=== PATIENT | female | born 1990 | race Caucasian/White ===

== ENCOUNTER 2018-01-14 09:32 | Emergency (ER) | payer MEDICAID, SELFPAY ==
[~2018-01-14] VITALS: Ht 162.6 cm; Wt 83.0 kg
[~2018-01-14 09:32] MED LIST: CLIN-80 PO
[2018-01-14 09:39] VITALS: BP 129/67
[2018-01-14] MEDS ORDERED: DOXY100C43 PO (10:09)
== END 2018-01-14 11:08 | disposition home or self-care (01) ==
LOC: ER 09:32
DX: L03.012 Cellulitis of left finger (principal)
CPT/HCPCS: 99283

== ENCOUNTER 2021-01-16 03:43 | Emergency (ER) | payer MEDICAID, OTHER ==
[~2021-01-16] VITALS: Ht 165.1 cm; Wt 84.1 kg
[~2021-01-16 03:43] MED LIST changes: -CLIN-80 PO; +CLIN-97 PO
[2021-01-16 03:57] VITALS: BP 119/73
[2021-01-16] MEDS ORDERED: ketorolac trometh inj. 60 MG/2 ML VIAL IM ONE (04:05)
== END 2021-01-16 04:45 | disposition home or self-care (01) ==
LOC: ER 03:44
DX: R10.31 Right lower quadrant pain (principal); Z86.14 Personal history of Methicillin resistant Staphylococcus aureus infection; Z90.89 Acquired absence of other organs; Z88.8 Allergy status to other drugs, medicaments and biological substances; Z79.2 Long term (current) use of antibiotics; V87.7XXA Person injured in collision between other specified motor vehicles (traffic), initial encounter; Y93.89 Activity, other specified; Y92.89 Other specified places as the place of occurrence of the external cause; Y99.8 Other external cause status
CPT/HCPCS: 99281; 99282

== ENCOUNTER 2021-03-31 14:37 | Emergency (ER) | payer MEDICAID, OTHER ==
[~2021-03-31] VITALS: Ht 165.1 cm; Wt 87.2 kg
[2021-03-31 14:55] VITALS: BP 113/69
--- NOTE | 2021-03-31 19:39 | NUR ---
PT IS 30 YO FEMALE C/O LEFT FOOT ANKLE LOWER LEG SWELLING, SLIGHTLY RED X2 DAYS, NO RECENT TRAUMA, AMB WITH SLIGHT LIMP TO FAST TRACK FROM THE MAIN ER LOBBY, HAS BEEN EVALUATED BY [facility]
== END 2021-03-31 21:54 | disposition home or self-care (01) ==
LOC: ER 14:38
DX: S93.402A Sprain of unspecified ligament of left ankle, initial encounter (principal); R20.2 Paresthesia of skin; Z90.49 Acquired absence of other specified parts of digestive tract; Z86.14 Personal history of Methicillin resistant Staphylococcus aureus infection; Z88.8 Allergy status to other drugs, medicaments and biological substances; Z79.2 Long term (current) use of antibiotics; X58.XXXA Exposure to other specified factors, initial encounter; Y93.89 Activity, other specified; Y92.89 Other specified places as the place of occurrence of the external cause; Y99.8 Other external cause status
CPT/HCPCS: 73610; 93971; 99284

== ENCOUNTER 2022-01-30 16:30 | Emergency (ER) | payer MEDICAID ==
[~2022-01-30] VITALS: Ht 165.1 cm; Wt 90.0 kg
[2022-01-30 16:33] VITALS: BP 114/73
[2022-01-30 17:10] LABS: BASOPHILS % (AUTO) 0.3 % (0-1); EOSINOPHILS # (AUTO) 0.1 X10'3 (0-0.9); EOSINOPHILS % (AUTO) 1.3 % (0-6); HEMATOCRIT 38.9 % (35.0-45.0); HEMOGLOBIN 12.7 g/dl (12.0-16.0); LYMPHOCYTES # (AUTO) 2.3 X10'3 (1.1-4.8); LYMPHOCYTES % (AUTO) 28.5 % (21-51); MEAN CORPUSCULAR HEMOGLOBIN 26.5 PG (27.0-31.0); MEAN CORPUSCULAR HGB CONC 32.6 g/dL (33.0-36.5); MEAN CORPUSCULAR VOLUME 81.4 FL (78-98); MEAN PLATELET VOLUME 7.1 FL (7.4-10.4); MONOCYTES # (AUTO) 0.5 X10'3 (0-0.9); MONOCYTES % (AUTO) 6.6 % (2-12); NEUTROPHILS # (AUTO) 5.1 X10'3 (1.8-7.7); NEUTROPHILS % (AUTO) 63.3 % (42-75); PLATELET COUNT 335 X10'3 (140-440); RED BLOOD COUNT 4.78 X10'6 (4.20-5.60); RED CELL DISTRIBUTION WIDTH 13.9 % (11.5-14.5); WHITE BLOOD COUNT 8.1 X10'3 (4.5-11.0)
[2022-01-30] MEDS ORDERED: medroxyprogesterone acet. 2.5mg tablet PO SCH (17:35)
[2022-01-30] MEDS ORDERED: tranexamic acid 1gm/0.7% sal. 100 ML IV ONE (17:35)
--- NOTE | 2022-01-30 17:37 | NUR ---
US at bedside
[2022-01-30] MEDS ORDERED: tranexamic acid inj. 1,000 MG in normal saline 100ml IV soln 100 ML IV ONE (18:00)
[2022-01-30 18:44] LABS: ALANINE AMINOTRANSFERASE 39 U/L (12-78); ALBUMIN 4.1 G/DL (3.4-5.0); ALBUMIN/GLOBULIN RATIO 1.2 (1.1-1.5); ALKALINE PHOSPHATASE 51 IU/L (46-116); ANION GAP 9 (8-16); ASPARTATE AMINO TRANSFERASE 23 U/L (10-37); BILIRUBIN,TOTAL 0.4 MG/DL (0.1-1.0); BLOOD UREA NITROGEN 17 MG/DL (7-18); BUN/CREATININE RATIO 25.4 (6.6-38.0); CALCIUM 8.8 MG/DL (8.5-10.1); CHLORIDE 105 MMOL/L (99-107); CREATININE 0.67 MG/DL (0.40-0.90); GLUCOSE 97 MG/DL (70-104); POTASSIUM 3.6 MMOL/L (3.5-5.1); SODIUM 142 MMOL/L (135-145); TOTAL CARBON DIOXIDE 28.3 MMOL/L (24-32); TOTAL PROTEIN 7.4 G/DL (6.4-8.2); eGFR > 90 ML/MIN
[2022-01-30 18:51] LABS: BETA HCG,QUANTITATIVE 2 mIU/ml
[2022-01-30] MEDS ORDERED: MEDR10TA PO (19:13)
== END 2022-01-30 19:24 | disposition home or self-care (01) ==
LOC: ER 16:31
DX: O20.9 Hemorrhage in early pregnancy, unspecified (principal); Z90.49 Acquired absence of other specified parts of digestive tract; Z86.14 Personal history of Methicillin resistant Staphylococcus aureus infection; Z88.5 Allergy status to narcotic agent; Z79.899 Other long term (current) drug therapy; Z3A.00 Weeks of gestation of pregnancy not specified
CPT/HCPCS: 36415; 76801; 80053; 84702; 85025; 96365; 99284; J3490

== ENCOUNTER 2022-04-16 20:13 | Emergency (ER) | payer MEDICAID ==
[~2022-04-16] VITALS: Ht 165.1 cm; Wt 89.9 kg
[~2022-04-16 20:13] MED LIST changes: +MEDR10TA PO
[2022-04-16 20:47] VITALS: BP 124/79
[2022-04-16] MEDS ORDERED: AMOX500C2 PO (21:14)
[2022-04-16] MEDS: amoxicillin 250mg capsule PO ONE (21:17)
== END 2022-04-16 21:28 | disposition home or self-care (01) ==
LOC: ER 20:14
DX: K08.89 Other specified disorders of teeth and supporting structures (principal); R68.84 Jaw pain; R14.0 Abdominal distension (gaseous); Z86.14 Personal history of Methicillin resistant Staphylococcus aureus infection; Z90.89 Acquired absence of other organs; Z88.8 Allergy status to other drugs, medicaments and biological substances; Z79.2 Long term (current) use of antibiotics; Z79.899 Other long term (current) drug therapy
CPT/HCPCS: 99283

== ENCOUNTER 2023-09-03 14:50 | Emergency (ER) | payer BC, MEDICAID ==
[~2023-09-03] VITALS: Ht 165.1 cm; Wt 80.4 kg
[2023-09-03 15:40] LABS: BASOPHILS % (AUTO) 0.2 % (0-1); EOSINOPHILS # (AUTO) 0.1 X10'3 (0-0.9); HEMOGLOBIN 11.8 g/dl (12.0-16.0); LYMPHOCYTES % (AUTO) 20.6 % (21-51); MEAN CORPUSCULAR HEMOGLOBIN 25.6 PG (27.0-31.0); MEAN CORPUSCULAR HGB CONC 31.8 g/dL (33.0-36.5); MEAN CORPUSCULAR VOLUME 80.7 FL (78-98); MEAN PLATELET VOLUME 6.9 FL (7.4-10.4); MONOCYTES # (AUTO) 0.3 X10'3 (0-0.9); MONOCYTES % (AUTO) 6.9 % (2-12); NEUTROPHILS # (AUTO) 3.5 X10'3 (1.8-7.7); NEUTROPHILS % (AUTO) 71.3 % (42-75); PLATELET COUNT 375 X10'3 (140-440); RED BLOOD COUNT 4.59 X10'6 (4.20-5.60); RED CELL DISTRIBUTION WIDTH 14.7 % (11.5-14.5); WHITE BLOOD COUNT 4.9 X10'3 (4.5-11.0)
[2023-09-03 16:13] LABS: ANION GAP 8 (8-16); BILIRUBIN,TOTAL 0.3 MG/DL (0.1-1.0); BLOOD UREA NITROGEN 7 MG/DL (7-18); BUN/CREATININE RATIO 12.7 (10.0-20.0); CALCIUM 8.8 MG/DL (8.5-10.1); CHLORIDE 103 MMOL/L (99-107); CREATININE 0.55 MG/DL (0.40-0.90); GLUCOSE 107 MG/DL (70-104); POTASSIUM 3.5 MMOL/L (3.5-5.1); SODIUM 137 MMOL/L (135-145); TOTAL CARBON DIOXIDE 25.9 MMOL/L (24-32); eCRCL 132 ML/MIN; eGFR > 90 ML/MIN
[2023-09-03 16:14] LABS: ALANINE AMINOTRANSFERASE 33 U/L (12-78); ALBUMIN 3.4 G/DL (3.4-5.0); ALBUMIN/GLOBULIN RATIO 0.7 (1.1-1.5); ALKALINE PHOSPHATASE 66 IU/L (46-116); ASPARTATE AMINO TRANSFERASE 32 U/L (10-37); PRO BRAIN NATRIURETIC PEPTIDE 132 PG/ML (0-125)
[2023-09-03] MEDS ORDERED: PRED20TA PO (18:34)
[2023-09-03] MEDS ORDERED: CEPH250T PO (18:34)
[2023-09-03 18:57] VITALS: BP 119/62; PULSE 85; TEMP 98.2; O2SAT 100
[2023-09-03 19:04] VITALS: RESP 18
== END 2023-09-03 19:08 | disposition home or self-care (01) ==
LOC: ER 14:50
DX: R60.0 Localized edema (principal); Z86.14 Personal history of Methicillin resistant Staphylococcus aureus infection; Z79.899 Other long term (current) drug therapy; Z88.5 Allergy status to narcotic agent
CPT/HCPCS: 36415; 71045; 80053; 83880; 84484; 85025; 99284

== ENCOUNTER 2023-10-22 16:52 | Emergency (ER) | payer BC ==
[~2023-10-22] VITALS: Ht 167.6 cm; Wt 80.0 kg
[2023-10-22] MEDS: LIDOCAINE 1%/EPI 1:100,000 inj. 10 ML multi-dose vial SQ ONE (18:34)
[2023-10-22] MEDS: LIDOcaine 1% W/epiNEPHrine 1:100,000 20ml vial SQ ONE (18:42)
[2023-10-22 19:13] VITALS: BP 120/68; PULSE 82; RESP 16; TEMP 98.4; O2SAT 98
== END 2023-10-22 19:15 | disposition home or self-care (01) ==
LOC: ER 16:53
DX: M25.462 Effusion, left knee (principal)
CPT/HCPCS: 20610; 73564; 99284; A6449